=== PATIENT | male | born 1965 | race Caucasian/White ===

== ENCOUNTER 2022-03-13 12:04 | Emergency (ER) | payer SELFPAY ==
[2022-03-13] VITALS (23 sets, daily range): BP systolic 225–247; BP diastolic 114–141; PULSE 71–87; TEMP 36.2; O2SAT 92–98; BMI 41.6
--- NOTE | 2022-03-13 12:16 | CRLHL7_ITS ---
For Patients: As a result of the 21st Century Cures Act, medical imaging exams and procedure reports are released immediately into your electronic medical record. You may view this report before your referring provider. If you have questions, please contact your health care provider. INDICATION: Diffuse abdominal pain COMPARISON: None TECHNIQUE: CT examination of the abdomen and pelvis was performed following the uneventful intravenous administration of 150 cc of Isovue 3 7. Thin section axial images were obtained from the lung bases through the pubic symphysis. Oral contrast was not administered. Please note that all CT scans at this facility use dose modulation, iterative reconstruction, and/or weight-based dosing when appropriate to reduce radiation dose to as low as reasonably achievable. FINDINGS: LUNG BASES: The lung bases as visualized appear normal.The heart size is normal at the lung bases. Hiatal hernia LIVER/BILIARY SYSTEM:The liver is normal in size and configuration. There is no focal mass and there is no intra- or extra hepatic biliary ductal dilatation.Hepatic steatosis. Normal appearing gallbladder ADRENALS: Normal KIDNEYS, URETERS and BLADDER:Horseshoe kidney. Multiple intrarenal calculi on the left. No intrarenal calculi on the right. No renal cortical mass. Right-sided hydronephrosis and hydroureter due to a 2.5 millimeter calculus in the distal right ureter about 4 centimeters from the right ureterovesical junction. SPLEEN:Normal appearance. PANCREAS: Appears normal. RETROPERITONEUM and MESENTERY: There is no mass, adenopathy or aortic aneurysm. Atherosclerotic vascular calcifications GASTROINTESTINAL SYSTEM: There is no evidence of diverticulitis, colitis, mechanical obstruction, or appendicitis. The small bowel as visualized appears normal. PELVIS: No mass, adenopathy or free fluid. OSSEOUS STRUCTURES and ABDOMINAL WALL: There is an age-appropriate appearance of the osseous structures.Small fat containing bilateral inguinal hernias OTHER: No free fluid or free air. IMPRESSION: 1. There is a horseshoe kidney. There are multiple intrarenal calculi on the left. No intrarenal calculi on the right. There is right-sided hydronephrosis and hydroureter due to a 2.5 millimeter calcified calculus in the distal right ureter about 4 centimeters from the right ureterovesical junction. 2. Other is incidental nonacute appearing findings as above Please note that all CT scans at this facility use dose modulation, iterative reconstruction, and/or weight-based dosing when appropriate to reduce radiation dose to as low as reasonably achievable. Dictated by Brandan Moss MD @ 03/13/2022 12:57:31 PM (Electronically Signed)
[2022-03-13] MEDS: HYDROmorphone 0.5 mg/0.5 ml inj IVP ×2 (12:21→12:31)
--- NOTE | 2022-03-13 12:23 | ED.GENADULT ---
HPI - General Adult General Chief complaint: Abdominal Pain Stated complaint: Constipation Time Seen by Provider: 03/13/22 12:11 Source: patient Mode of arrival: EMS Limitations: no limitations History of Present Illness HPI narrative: 56-year-old male coming in today complaining of abdominal pain. Patient was going about his daily routine today when all of a sudden he began feeling diffuse abdominal discomfort. He started vomiting and has vomited several times. EMS was called when they reached him he was dry heaving clutching his abdomen. Patient arrives yelling and writhing in pain. States that he had a bowel movement last night and he has had small hard bowel movements for the last several days. He denies any urinary symptoms. No pain in his chest. He is not short of breath. He denies any blood in his vomit or stool. No fevers or chills. He states that the pain is diffuse throughout the entire abdomen. Patient states that he may be prediabetic, has a horseshoe kidney but no kidney disease, denies any abdominal surgeries in the past. Related Data Previous Rx's Medication Instructions Recorded ketorolac 10 mg tablet 10 mg PO TID 5 days #15 tabs 03/13/22 tamsulosin 0.4 mg capsule (Flomax) 0.4 mg PO Q24H #30 caps 03/13/22 Allergies Allergy/AdvReac Type Severity Reaction Status Date / Time No Known Drug Allergies Allergy Verified 03/13/22 12:50 Review of Systems Status of ROS: Reports: 10 or more systems reviewed and unremarkable except as noted in History and below [facility] Social History Smoking Status: Never smoker Do you use any of these nicotine containing products: None Second hand tobacco smoke exposure: No How often do you have a drink containing alcohol: never AUDIT-C Alcohol total score: 0 Non-prescribed substance use: denies use service: No Exam Narrative: Exam Narrative: Overweight, well-developed patient writhing and yelling in pain. Alert and oriented. Patient just yells continuously and is difficult for us to have a conversation but he can answer questions between his yells. HEENT: Normocephalic atraumatic. Pupils are equally round reactive to light. Extraocular muscles are intact. Conjunctivae are moist without any icterus noted. Moist mucous membranes. Posterior pharynx is normal. Neck is soft without any lymphadenopathy or thyromegaly. No masses are appreciated. Cardiovascular: Heart is regular rate and rhythm S1 and S2 are present without any murmurs. Lungs: Clear to auscultation bilaterally no wheezes rhonchi or rales are appreciated. Patient takes deep breaths without any discomfort. Abdomen: Firm, diffusely tender, hypoactive bowel sounds. Extremities: Bilateral lower extremities are without edema. Skin: Well perfused without any obvious rashes. Const: Vital Signs, click to edit/add: Vital Signs - 24 hr 03/13/22 12:14 03/13/22 12:12 03/13/22 12:26 Temperature 97.2 F L Pulse Rate 83 Pulse Rate [Pulse Oximeter] 84 Blood Pressure Blood Pressure [Ri ght Upper Arm] 241/129 H Pulse Oximetry 98 97 97 Oxygen Delivery Me thod Room Air Oxygen Flow Rate 03/13/22 12:30 03/13/22 12:48 03/13/22 12:55 Temperature Pulse Rate 82 87 83 Pulse Rate [Pulse Oximeter] Blood Pressure 234/114 H Blood Pressure [Ri ght Upper Arm] Pulse Oximetry 97 97 95 Oxygen Delivery Me thod Room Air Oxygen Flow Rate 03/13/22 13:32 Temperature Pulse Rate Pulse Rate [Pulse Oximeter] Blood Pressure Blood Pressure [Ri ght Upper Arm] Pulse Oximetry 95 Oxygen Delivery Me thod Nasal Cannula Oxygen Flow Rate 2 Course Course Hospital Course: Patient had an IV in place and he received 25 mg of Benadryl in the ambulance. Patient received Dilaudid, Ativan and IV fluids were started. Labs and abdominal CT were ordered. White cell count slightly elevated at 12,000 thousand. Lactate was elevated at 2.9 however returned back to normal after 1 L of normal saline. Urinalysis without any evidence of infection, positive for red blood cells. CRP not elevated. Abdominal CT showing a 2.5 mm kidney stone causing some hydronephrosis on the right side. Vital Signs Vital signs: Initial Vital Signs Pulse Oximetry 97 03/13/22 12:12 Vital Signs Pulse Oximetry 97 03/13/22 12:12 Temperature 97.2 F L 03/13/22 12:14 Pulse Rate 83 03/13/22 12:55 Blood Pressure 234/114 H 03/13/22 12:55 Pulse Oximetry 95 03/13/22 13:32 Oxygen Delivery Method 03/13/22 13:32 Oxygen Flow Rate 2 03/13/22 13:32 Medical Decision Making MDM Narrative Medical decision making narrative: 56-year-old male with a 2.5 mm kidney stone causing mild hydronephrosis and hydroureter on the right side. Patient will be discharged home with pain medication, Flomax. He will follow up with Urology or primary care as needed. We discussed returning to the ER if pain cannot be controlled or he develops a fever. Lab Data Lab results reviewed: Yes I reviewed the patient's lab results Labs: Lab Results 03/13/22 03/13/22 03/13/22 Range/Units 12:22 12:22 12:22 WBC 12.01 H (4.50-11.00) K/uL RBC 5.49 (4.30-5.90) m/uL Hgb 15.8 (13.5-17.5) gm/dL Hct 44.4 (37.0-53.0) % MCV 81 (80-100) fL MCH 29 (26-34) pg MCHC 36 (32-36) gm/dL RDW Coeff of Vasquez 12.4 (11.5-15.5) % Plt Count 324 (140-440) K/uL Neut % (Auto) 61.5 (42.0-72.0) % Lymph % (Auto) 31.1 (20-44) % [place] % (Auto) 6.4 (0.0-11.0) % Eos % (Auto) 0.6 (0.0-7.0) % Baso % (Auto) 0.2 (0.0-3.0) % Neut # (Auto) 7.40 H (1.7-7.0) K/uL Lymph # (Auto) 3.70 H (0.90-2.90) K/uL [place] # (Auto) 0.80 (0.00-0.90) K/UL Eos # (Auto) 0.10 (0.00-0.50) K/uL Baso # (Auto) 0.00 (0.00-0.30) K/uL ESR 11 (2-15) mm/hr Sodium 140 (135-149) mmol/L Potassium 3.9 (3.6-5.1) mmol/L Chloride 107 (96-114) mmol/L Carbon Dioxide 21 (20-32) mmol/L BUN 16 (7-30) mg/dL Creatinine 1.2 (0.5-1.5) mg/dL Estimated Creat Clear 74.55 Estimated GFR 71 ml/min Glucose 179 H (60-115) mg/dL Lactate (0.5-1.9) mmol/L Calcium 9.4 (8.4-10.6) mg/dL Total Bilirubin (0.1-1.5) mg/dL Direct Bilirubin (0.0-0.5) mg/dL AST (12-35) U/L ALT (4-50) U/L Alkaline Phosphatase (40-150) U/L C-Reactive Protein 0.6 (0.5-1.0) mg/dL Total Protein (6.0-8.3) g/dL Albumin (3.3-5.0) g/dL Lipase (23-300) U/L Urine Color (Yellow) Urine Appearance (Clear) Urine pH (5.0-8.5) Ur Specific [place] (1.000-1.030) Urine Protein (Negative) Urine Glucose (UA) (Negative) Urine Ketones (Negative) Urine Blood (Negative) Urine Nitrite (Negative) Urine Bilirubin (Negative) Urine Urobilinogen (0.2-1.0) Ur Leukocyte Esterase (Negative) Urine RBC (0-2) Urine WBC (0-5) Ur Squamous Epith Cells (None-Few) Urine Bacteria (None) 03/13/22 03/13/22 03/13/22 Range/Units 12:22 12:22 13:55 WBC (4.50-11.00) K/uL RBC (4.30-5.90) m/uL Hgb (13.5-17.5) gm/dL Hct (37.0-53.0) % MCV (80-100) fL MCH (26-34) pg MCHC (32-36) gm/dL RDW Coeff of Vasquez (11.5-15.5) % Plt Count (140-440) K/uL Neut % (Auto) (42.0-72.0) % Lymph % (Auto) (20-44) % [place] % (Auto) (0.0-11.0) % Eos % (Auto) (0.0-7.0) % Baso % (Auto) (0.0-3.0) % Neut # (Auto) (1.7-7.0) K/uL Lymph # (Auto) (0.90-2.90) K/uL [place] # (Auto) (0.00-0.90) K/UL Eos # (Auto) (0.00-0.50) K/uL Baso # (Auto) (0.00-0.30) K/uL ESR (2-15) mm/hr Sodium (135-149) mmol/L Potassium (3.6-5.1) mmol/L Chloride (96-114) mmol/L Carbon Dioxide (20-32) mmol/L BUN (7-30) mg/dL Creatinine (0.5-1.5) mg/dL Estimated Creat Clear Estimated GFR ml/min Glucose (60-115) mg/dL Lactate 2.9 H (0.5-1.9) mmol/L Calcium (8.4-10.6) mg/dL Total Bilirubin 1.3 (0.1-1.5) mg/dL Direct Bilirubin 0.1 (0.0-0.5) mg/dL AST 44 H (12-35) U/L ALT 50 (4-50) U/L Alkaline Phosphatase 111 (40-150) U/L C-Reactive Protein (0.5-1.0) mg/dL Total Protein 8.2 (6.0-8.3) g/dL Albumin 4.6 (3.3-5.0) g/dL Lipase 97 (23-300) U/L Urine Color Yellow (Yellow) Urine Appearance Clear (Clear) Urine pH 7.0 (5.0-8.5) Ur Specific [place] 1.015 (1.000-1.030) Urine Protein 1+ A (Negative) Urine Glucose (UA) Trace A (Negative) Urine Ketones 1+ A (Negative) Urine Blood 2+ A (Negative) Urine Nitrite Negative (Negative) Urine Bilirubin Negative (Negative) Urine Urobilinogen 0.2 (0.2-1.0) Ur Leukocyte Esterase Negative (Negative) Urine RBC 5-10 A (0-2) Urine WBC 0-2 (0-5) Ur Squamous Epith Cells None (None-Few) Urine Bacteria None (None) 03/13/22 Range/Units 14:20 WBC (4.50-11.00) K/uL RBC (4.30-5.90) m/uL Hgb (13.5-17.5) gm/dL Hct (37.0-53.0) % MCV (80-100) fL MCH (26-34) pg MCHC (32-36) gm/dL RDW Coeff of Vasquez (11.5-15.5) % Plt Count (140-440) K/uL Neut % (Auto) (42.0-72.0) % Lymph % (Auto) (20-44) % [place] % (Auto) (0.0-11.0) % Eos % (Auto) (0.0-7.0) % Baso % (Auto) (0.0-3.0) % Neut # (Auto) (1.7-7.0) K/uL Lymph # (Auto) (0.90-2.90) K/uL [place] # (Auto) (0.00-0.90) K/UL Eos # (Auto) (0.00-0.50) K/uL Baso # (Auto) (0.00-0.30) K/uL ESR (2-15) mm/hr Sodium (135-149) mmol/L Potassium (3.6-5.1) mmol/L Chloride (96-114) mmol/L Carbon Dioxide (20-32) mmol/L BUN (7-30) mg/dL Creatinine (0.5-1.5) mg/dL Estimated Creat Clear Estimated GFR ml/min Glucose (60-115) mg/dL Lactate 1.8 (0.5-1.9) mmol/L Calcium (8.4-10.6) mg/dL Total Bilirubin (0.1-1.5) mg/dL Direct Bilirubin (0.0-0.5) mg/dL AST (12-35) U/L ALT (4-50) U/L Alkaline Phosphatase (40-150) U/L C-Reactive Protein (0.5-1.0) mg/dL Total Protein (6.0-8.3) g/dL Albumin (3.3-5.0) g/dL Lipase (23-300) U/L Urine Color (Yellow) Urine Appearance (Clear) Urine pH (5.0-8.5) Ur Specific [place] (1.000-1.030) Urine Protein (Negative) Urine Glucose (UA) (Negative) Urine Ketones (Negative) Urine Blood (Negative) Urine Nitrite (Negative) Urine Bilirubin (Negative) Urine Urobilinogen (0.2-1.0) Ur Leukocyte Esterase (Negative) Urine RBC (0-2) Urine WBC (0-5) Ur Squamous Epith Cells (None-Few) Urine Bacteria (None) Imaging Data CT scan - abdomen: Attestation: I have reviewed the pertinent imaging results. Radiologist's impression: TECHNIQUE: CT examination of the abdomen and pelvis was performed following the uneventful intravenous administration of 150 cc of Isovue 3 7. Thin section axial images were obtained from the lung bases through the pubic symphysis. Oral contrast was not administered. Please note that all CT scans at this facility use dose modulation, iterative reconstruction, and/or weight-based dosing when appropriate to reduce radiation dose to as low as reasonably achievable. FINDINGS: LUNG BASES: The lung bases as visualized appear normal.The heart size is normal at the lung bases. Hiatal hernia LIVER/BILIARY SYSTEM:The liver is normal in size and configuration. There is no focal mass and there is no intra- or extra hepatic biliary ductal dilatation.Hepatic steatosis. Normal appearing gallbladder ADRENALS: Normal KIDNEYS, URETERS and BLADDER:Horseshoe kidney. Multiple intrarenal calculi on the left. No intrarenal calculi on the right. No renal cortical mass. Right-sided hydronephrosis and hydroureter due to a 2.5 millimeter calculus in the distal right ureter about 4 centimeters from the right ureterovesical junction. SPLEEN:Normal appearance. PANCREAS: Appears normal. RETROPERITONEUM and MESENTERY: There is no mass, adenopathy or aortic aneurysm. Atherosclerotic vascular calcifications GASTROINTESTINAL SYSTEM: There is no evidence of diverticulitis, colitis, mechanical obstruction, or appendicitis. The small bowel as visualized appears normal. PELVIS: No mass, adenopathy or free fluid. OSSEOUS STRUCTURES and ABDOMINAL WALL: There is an age-appropriate appearance of the osseous structures.Small fat containing bilateral inguinal hernias OTHER: No free fluid or free air. IMPRESSION: 1. There is a horseshoe kidney. There are multiple intrarenal calculi on the left. No intrarenal calculi on the right. There is right-sided hydronephrosis and hydroureter due to a 2.5 millimeter calcified calculus in the distal right ureter about 4 centimeters from the right ureterovesical junction. 2. Other is incidental nonacute appearing findings as above Discharge Plan Discharge Clinical Impression: Calculus of kidney Patient Disposition: Home, Self-Care Condition: Improved Additional Instructions: Drink plenty of fluids, use pain medications as needed/as directed. Use Flomax daily. Return to ER if you develop a fever or pain that cannot be controlled. Follow-up with primary care provider in 2 weeks. Flomax and Toradol sent to pharmacy, hydrocodone in [facility]. Prescriptions: New ketorolac 10 mg tablet 10 mg PO TID 5 Days Qty: 15 0RF tamsulosin [Flomax] 0.4 mg capsule 0.4 mg PO Q24H Qty: 30 2RF Stand Alone Forms: [employer] Info Instructions
[2022-03-13] MEDS: LORazepam 2 MG/ML inj 0.5 MG IVP (12:29)
[2022-03-13] MEDS: SODIUM CHLORIDE 0.9 % (FLUSH) 10 ML SYRINGE 5 ML IVF (12:30)
[2022-03-13 12:40] LABS: Lactate* 2.9 mmol/L (0.5-1.9)
[2022-03-13 12:41] LABS: Basophils Percent Auto 0.2 % (0.0-3.0); Eosinophils Percent Auto 0.6 % (0.0-7.0); Hematocrit 44.4 % (37.0-53.0); Hemoglobin* 15.8 gm/dL (13.5-17.5); Immature Granulocytes Pct Auto 0.2 %; Lymphocytes Percent Auto 31.1 % (20-44); Mean Corpuscular HGB Conc 36 gm/dL (32-36); Mean Corpuscular Hemoglobin 29 pg (26-34); Mean Corpuscular Volume 81 fL (80-100); Monocytes Percent Auto 6.4 % (0.0-11.0); Neutrophils Percent Auto 61.5 % (42.0-72.0); Platelet Count* 324 K/uL (140-440); RDW Coefficient of Variation % 12.4 % (11.5-15.5); Red Blood Count 5.49 m/uL (4.30-5.90); White Blood Count* 12.01 K/uL (4.50-11.00)
[2022-03-13 12:43] LABS: Slide Review Reflex No
[2022-03-13] MEDS: 0.9 % SODIUM CHLORIDE 1000 ml 1,000 ML IV (12:53)
[2022-03-13 13:14] LABS: Chloride* 107 mmol/L (96-114); Sodium* 140 mmol/L (135-149)
[2022-03-13 13:15] LABS: Potassium* 3.9 mmol/L (3.6-5.1)
[2022-03-13 13:16] LABS: Albumin* 4.6 g/dL (3.3-5.0)
[2022-03-13 13:17] LABS: Creatinine* 1.2 mg/dL (0.5-1.5); Est. Creatinine Clearance* 74.55; Estimated Glomerular Filt Rate 71 ml/min
[2022-03-13 13:18] LABS: Blood Urea Nitrogen* 16 mg/dL (7-30); Carbon Dioxide* 21 mmol/L (20-32); Glucose* 179 mg/dL (60-115)
[2022-03-13 13:19] LABS: Alanine Aminotransferase* 50 U/L (4-50); Alkaline Phosphatase* 111 U/L (40-150); Aspartate Amino Transferase* 44 U/L (12-35); Bilirubin Direct* 0.1 mg/dL (0.0-0.5); Bilirubin Total* 1.3 mg/dL (0.1-1.5); Calcium* 9.4 mg/dL (8.4-10.6); Lipase* 97 U/L (23-300); Total Protein* 8.2 g/dL (6.0-8.3)
[2022-03-13 13:21] LABS: C Reactive Protein* 0.6 mg/dL (0.5-1.0)
--- NOTE | 2022-03-13 13:33 | ED.NURSE ---
Pt oxygen dipping to mid-low 80's after narcotic administration. Pt started on 2L via [place]. Oxygen returned to >90%.
[2022-03-13 14:08] LABS: Appearance Urine Clear (Clear); Bilirubin Urine Negative (Negative); Blood Urine 2+ (Negative); Color Urine Yellow (Yellow); Glucose Urine Trace (Negative); Ketones Urine 1+ (Negative); Leukocyte Esterase Urine Negative (Negative); Nitrite Urine Negative (Negative); Protein Urine 1+ (Negative); Specific Gravity Urine 1.015 (1.000-1.030); Urobilinogen Urine 0.2 (0.2-1.0)
[2022-03-13 14:19] LABS: Erythrocyte SedimentationRate* 11 mm/hr (2-15)
[2022-03-13 14:32] LABS: Lactate* 1.8 mmol/L (0.5-1.9)
[2022-03-13 14:41] LABS: WBC Urine 0-2 (0-5)
== END 2022-03-13 15:24 | disposition home or self-care (01) ==
PROVIDERS: Emergency Provider Family Medicine
DX: N20.0 Calculus of kidney (principal)
CPT/HCPCS: 36415; 74177; 80048; 80076; 81001; 83605; 83690; 85025; 85651; 86140; 87086; 94761; 96374; 96375; 96376; 99284; 99285; J1170; J2060; J7030; Q9967